=== PATIENT | male | born 1960 | race Asian ===

== ENCOUNTER 2018-12-16 07:40 | Day surgery (SDC) | payer BC ==
[2018-12-16 08:51] LABS: ADD MAN DIFF? NO
[2018-12-16 08:54] LABS: WHITE BLOOD COUNT 7.2 10^3/ul (4.8-10.8)
[2018-12-16 08:54] LABS: ABNORMAL IP MESSAGE 1; BASOPHILS % 0.6 % (0.0-2.0); EOSINOPHILS # 0.2 10^3/ul (0.0-0.5); EOSINOPHILS % 2.2 % (0.0-7.0); HEMOGLOBIN 13.1 g/dl (14.0-18.0); LYMPHOCYTES # 0.8 10^3/ul (0.8-2.9); LYMPHOCYTES % 10.4 % (15.0-51.0); MEAN CORPUSCULAR HEMOGLOBIN 29.6 pg (29.0-33.0); MEAN CORPUSCULAR HGB CONC 31.2 g/dl (32.0-37.0); MONOCYTE # 0.5 10^3/ul (0.3-0.9); MONOCYTES % 7.4 % (0.0-11.0); NEUTROPHIL # 5.7 10^3/ul (1.6-7.5); PLATELET COUNT 65 10^3/UL (140-415); POSITIVE DIFF @See below; RED BLOOD COUNT 4.42 10^6/ul (4.70-6.10); RED CELL DISTRIBUTION WIDTH 14.7 % (11.5-14.5)
[2018-12-16 09:06] LABS: HOLD TRANSMISSIONS 1
[2018-12-16 09:12] LABS: INR 0.98; PROTIME 13.1 Sec (11.9-14.9)
[2018-12-16 09:16] LABS: ALANINE AMINOTRANSFERASE 16 IU/L (13-69); ALBUMIN 4.2 g/dl (3.3-4.9); ALBUMIN/GLOBULIN RATIO 0.85; ALKALINE PHOSPHATASE 95 IU/L (42-121); ANION GAP 10 (5-13); ASPARTATE AMINO TRANSFERASE 23 IU/L (15-46); BILIRUBIN,INDIRECT 0.3 mg/dl (0-1.1); BILIRUBIN,TOTAL 0.3 mg/dl (0.2-1.3); CALCIUM 9.3 mg/dl (8.4-10.2); CARBON DIOXIDE 23 mmol/L (21-31); CHLORIDE 108 mmol/L (97-110); Estimated GFR 14 mL/min (>60); GLUCOSE 92 mg/dl (70-220); POTASSIUM 4.8 mmol/L (3.5-5.1); SODIUM 141 mmol/L (135-144); TOTAL PROTEIN 9.1 g/dl (6.1-8.1)
[2018-12-16 09:20] LABS: BLOOD UREA NITROGEN 47 mg/dl (7-20); CREATININE 4.54 mg/dl (0.61-1.24)
[2018-12-16 09:40] LABS: PARTIAL THROMBOPLASTIN TIME 35.5 Sec (23.0-35.0)
[2018-12-16] MEDS ORDERED: LIDOCAINE 1% (MPF) 30 ML INJ (09:47)
[2018-12-16] MEDS: HEPARIN 1000 UNITS/ML 10 ML INJ IRR (10:00)
[2018-12-16] MEDS ORDERED: METOCLOPRAMIDE 10 MG INJ IV (10:00)
[2018-12-16] MEDS ORDERED: ONDANSETRON 4 MG INJ IV (10:00)
[2018-12-16] MEDS: LIDOCAINE 1% (MPF) 30 ML INJ INJ (10:00)
[2018-12-16] MEDS ORDERED: HYDROmorphONE 1 MG/5 ML IV SYRINGE IV ×3 (10:00)
[2018-12-16] MEDS ORDERED: MIDAZOLAM 1 MG/ML 2 ML INJ (10:04)
[2018-12-16] MEDS ORDERED: PROPOFOL 20 ML ×2 (10:10→10:46)
[2018-12-16] MEDS ORDERED: CEFAZOLIN 1 GM INJ (10:10)
[2018-12-16] MEDS ORDERED: FENTAnyl 50 MCG/ML VIAL (10:25)
[2018-12-16] MEDS ORDERED: EPHEDrine SULFATE 50 MG/5 ML SYG (10:49)
[2018-12-16 10:58] LABS: ANISOCYTOSIS 1+ (0-0); BAND NEUTROPHILS #M 0.1 10^3/ul (0.0-0.6); BAND NEUTROPHILS % (M) 2 % (0-4); BASOPHIL #M 0.1 10^3/ul (0.0-0.0); BASOPHILS % (M) 2 % (0-2); BURR CELLS 2+ (0-0); ELLIPTO 1+ (0-0); EOSINOPHILS % (M) 1 % (0-7); GIANT THROMBO% (M) 1 % (0-0); LYMPHOCYTES #M 0.9 10^3/ul (0.8-2.9); LYMPHOCYTES % (M) 13 % (15-51); MONOCYTE #M 0.4 10^3/ul (0.3-0.9); MONOCYTES % (M) 6 % (0-11); PLATELET ESTIMATE DECREASED; POIKILOCYTOSIS 2+ (0-0); POLYCHROMASIA 1+ (0-0); SEG NEUT #M 5.5 10^3/ul (1.6-7.5); SEGMENTED NEUTROPHILS (M) % 76 % (39-77); SMUDGE%M 3 % (0-0)
== END 2018-12-16 13:38 | disposition home or self-care (01) ==
LOC: SDS 07:40
DX: I12.0 Hypertensive chronic kidney disease with stage 5 chronic kidney disease or end stage renal disease (principal); N18.6 End stage renal disease; E78.5 Hyperlipidemia, unspecified; E11.9 Type 2 diabetes mellitus without complications; Z86.73 Personal history of transient ischemic attack (TIA), and cerebral infarction without residual deficits
CPT/HCPCS: 36821; 71045; 80053; 82962; 85025; 85610; 85730; 93005